=== PATIENT | female | born 1985 | race Caucasian/White ===

== ENCOUNTER 2017-03-23 19:08 | Emergency (ER) | payer MEDICAID ==
[2017-03-23 19:18] VITALS: BP 124/85; PULSE 78; RESP 16; TEMP 98.1; O2SAT 96
[2017-03-23] MEDS ORDERED: TDAP ADULT 0.5 ML INJ (BOOSTRIX) IM ONE (19:54)
--- NOTE | 2017-03-23 19:57 | EDPHY ---
H & P Source: Patient, Family Exam Limitations: No limitations - Medical/Surgical History Hx Asthma: No Hx Chronic Respiratory Disease: No Hx Diabetes: No Hx Cardiac Disease: No Hx Renal Disease: No Hx Cirrhosis: No Hx Alcoholism: No Hx HIV/AIDS: No Hx Splenectomy or Spleen Trauma: No Other PMH: bel removal, depression, Hep C, add - Social History Smoking Status: Former smoker HPI/ROS: CHIEF COMPLAINT: Finger tip laceration HISTORY OF PRESENT ILLNESS: Patient was using scissors to wrap her present this afternoon around 3:30 p.m. when she accidentally cut the distal phalanx on the right middle finger. Moderate bleeding noted. Worse with palpation and movement. Improved at rest. Some tingling and numbness of the area of injury. Now becoming more painful. No difficulty flexing or extending the finger. No injury elsewhere. Uncertain when her last tetanus shot was. No other associated complaints or modifying factors. TIME OF INJURY: 3:30 p.m.. TETANUS STATUS: Uncertain REVIEW OF SYSTEMS: Ten systems reviewed and are negative unless otherwise noted in the HPI EXAMINATION General Appearance: Alert, no distress Cardiovascular: Pulses normal throughout. Symmetric radial pulses. Brisk cap refill Neurological: A&O, sensory symmetric, strength symmetric Skin: Warm and dry, no rash. There is a 0.5 cm in diameter area of tissue avulsion on the distal phalanx of the right middle finger. No repairable laceration. Neurovascular intact distally with brisk cap refill Extremities: Tender over the area of skin avulsion. Full flexion extension including superficial and profundus. Neurovascular intact. Psychiatric: Mood and affect normal MDM: 7:50 p.m. Superficial skin avulsion on the distal phalanx of the right middle finger. Tetanus status is in question, thus we will provide vaccination here. I have applied a digital block for pain control. 7:50 p.m. PROCEDURE: Digital Block Indication:Finger laceration/avulsion Consent: Verbal Location: Right middle finger, distal phalanx Anesthesia: Lidocaine 1% plain, 0.25% Marcaine plain, 5mL Description: The base of the right middle finger was prepped with chlorhexidine. The above was infused with good anesthesia. Tolerated well without complication. Brisk cap refill postprocedure. Complications: None 8:15 p.m. Digital block provided complete anesthesia. Wound has been irrigated copiously. I re-examined the wound. There is some mild bleeding after the irrigation but no foreign body. There is no repairable wound as the tissue was avulsed. It is very superficial. The wound is currently being dressed with bacitracin and Surgicel. Continue daily wound care with bacitracin as discussed. Keep the wound clean, dry and covered. Follow up with primary care physician [facility]. Return here for signs of infection as discussed. She is comfortable with this plan and discharged home stable condition. ED Precautions: Worsening pain. Erythema, edema, cyanosis, pallor, paresthesia or anesthesia. SUPERVISION: This patient was independently evaluated without direct examination by the attending physician. Case was discussed with attending physician. (Jimmie Barker) Constitutional: Initial Vital Signs Temperature (C) 36.7 C 03/23/17 19:16 Heart Rate 78 03/23/17 19:16 Respiratory Rate 16 03/23/17 19:16 Blood Pressure 124/85 H 03/23/17 19:16 O2 Sat (%) 96 03/23/17 19:16 O2 Delivery Mode Room Air Allergies/Adverse Reactions: No Known Allergies Allergy (Verified 03/23/17 19:18) Home Medications: Medication Instructions Recorded Vit/Fe Fumarate/FA 1 each PO DAILY 12/30/11 [ Tablet] FLUOXETINE HCL 08/30/16 traZODone 08/30/16 VYVANSE 03/23/17 Medical Decision Making Other Provider: The patient wasevaluatedand managed by themkylevel provider. My co- signature indicates that [facility] reviewed this chart and I agree with the findings and plan of care asdocumented. I am the secondary supervising physician. (Janine Jones) - Data Points Medications Given: Discontinued Medications Diphtheria/Tetanus/Acell Pertussis (Boostrix) 0.5 ml IM .ONCE ONE Stop: 03/23/17 19:55 Last Admin: 03/23/17 20:17 Dose: 0.5 ml Departure - Departure Disposition: Home, Routine, Self-Care Clinical Impression: Fingertip avulsion Condition: Good Instructions: Skin Avulsion (ED) Additional Instructions: Daily wound care as discussed. Keep the wound covered, clean and dry. Follow up here for any signs of infection as discussed. Contact primary care physician for definitive care otherwise Referrals: Shara Croft MD [[facility] Primary Care Provider] - As per Instructions NONE *PRIMARY CARE P,. [Primary Care Provider] - As per Instructions Leandra Meek MD [Medical Doctor] - As per Instructions Hammad Montanez MD [Medical Doctor] - As per Instructions
== END 2017-03-23 20:14 | disposition home or self-care (01) ==
PROC: 3E0234Z Introduction of Serum, Toxoid and Vaccine into Muscle, Percutaneous Approach (ICD-10-PCS; principal; 2017-03-23)
PROC: 3E0T3BZ Introduction of Anesthetic Agent into Peripheral Nerves and Plexi, Percutaneous Approach (ICD-10-PCS; principal; 2017-03-23)
DX: S61.202A Unspecified open wound of right middle finger without damage to nail, initial encounter (principal); Z23 Encounter for immunization; Z87.891 Personal history of nicotine dependence; W27.2XXA Contact with scissors, initial encounter

== ENCOUNTER 2018-07-20 21:57 | Emergency (ER) | payer MEDICAID ==
--- NOTE | 2018-07-20 22:21 | EDPHY ---
H & P Stated Complaint: ?SPIDER BITES, THUMB, LEGS Time Seen by Provider: 07/20/18 22:21 HPI/ROS: HPI CHIEF COMPLAINT: Multiple areas of redness. HISTORY OF PRESENT ILLNESS: 33-year-old female, she states she is otherwise healthy, however has a history of hepatitis-C, denies IV drug use, presents emergency room with 3 discrete erythematous lesions that are concerning for soft tissue infection. She has 1 on the left lateral thigh, 1 on the right gluteus, and 1 over the dorsum of the right thumb. She states this all or updated over the past week. The 1 on her thumb is new in the past day. She decided come the emergency room as the thumb lesion is erythematous, and looked infected to her. Past Medical History: Hepatitis-C. Past Surgical History: No recent surgery Social History: Smokes marijuana daily. Did have whiskey this evening. Denies IV drug use Family History: Noncontributory ROS REVIEW OF SYSTEMS: 10 Systems were reviewed and negative with the exception of the elements mentioned in the history of present illness. Exam Constitutional triage nursing summary reviewed, vital signs reviewed, awake/ alert. Eyes normal conjunctivae and sclera, EOMI, PERRLA. HENT normal inspection, atraumatic, moist mucus membranes, no epistaxis, neck supple/ no meningismus, no raccoon eyes. Respiratory clear to auscultation bilaterally, normal breath sounds, no respiratory distress, no wheezing. Cardiovascular rate normal, regular rhythm, no murmur, no edema, distal pulses normal. Gastrointestinal soft, non-tender, no rebound, no guarding, normal bowel sounds, no distension, no pulsatile mass. Genitourinary no CVA tenderness. Musculoskeletal no midline vertebral tenderness, full range of motion, no calf swelling, no tenderness of extremities, no meningismus, good pulses, neurovascularly intact. Skin 3 discrete lesions specifically a quarter-size lesion on the left eye, additionally quarter-size lesion on the right gluteus, and a dime-sized lesion over the dorsum of the right thumb. Erythema with a small amount of streaking up her thumb. The thumb is neurovascular intact. No evidence of tenosynovitis at this time. No sausage digit. It is not significantly swollen. She has full range of motion. Good cap refill. Sensation intact. No crepitus. However the dorsum of this is a very small area of erythema. Warmth. Neurologic awake, alert and oriented x 3, AAOx3, moves all 4 extremities equally, motor intact, sensory intact, CN II-XII intact, normal cerebellar, normal vision, normal speech. Psychiatric normal mood/affect. Heme/Lymph/Immune no lymphadenopathy. Differential Diagnosis: Includes but is not limited to in a particular order cellulitis, strep infection, MRSA infection Medical Decision Making: Plan for this patient IM Ancef. Additionally oral Keflex. Additionally oral Bactrim. Recommend warm compresses. Warm compresses for 20 min 3 times a day. Return precautions discussed with the patient return emergency room if there is worsening redness, pain, swelling, streaking. Source: Patient - Personal History LMP (Females 10-55): 1-7 Days Ago Current Tetanus/Diphtheria Vaccine: Unsure - Medical/Surgical History Hx Asthma: No Hx Chronic Respiratory Disease: No Hx Diabetes: No Hx Cardiac Disease: No Hx Renal Disease: No Hx Cirrhosis: No Hx Alcoholism: No Hx HIV/AIDS: No Hx Splenectomy or Spleen Trauma: No Other PMH: bel removal, depression, Hep C, add - Social History Smoking Status: Current some day smoker Constitutional: Initial Vital Signs Temperature (C) 36.7 C 07/20/18 21:59 Heart Rate 80 07/20/18 21:59 Respiratory Rate 18 07/20/18 21:59 Blood Pressure 135/99 H 07/20/18 21:59 O2 Sat (%) 96 07/20/18 21:59 O2 Delivery Mode Room Air Allergies/Adverse Reactions: No Known Allergies Allergy (Verified 07/20/18 21:58) Home Medications: Medication Instructions Recorded Vit/Fe Fumarate/FA 1 each PO DAILY 12/30/11 [ Tablet] traZODone 08/30/16 VYVANSE 03/23/17 Cephalexin [Keflex] 500 mg PO Q6H #28 cap 07/20/18 Effexor Xr 07/20/18 Sulfamethox/Tmp 800/160 mg 1 tab PO BID #14 tab 07/20/18 [Bactrim Ds] Departure - Departure Disposition: Home, Routine, Self-Care Clinical Impression: Cellulitis Qualifiers: Site of cellulitis: unspecified site Qualified Code(s): L03.90 - Cellulitis, unspecified Condition: Good Instructions: Cellulitis (ED) Additional Instructions: 1. Warm compresses 3 times a day for 20 min. 2. Antibiotics as prescribed 3. Return if worsening symptoms including worsening redness, pain, swelling, warmth. Referrals: CARLA GOLDMAN [Other] - As per Instructions Prescriptions: Cephalexin [Keflex] 500 mg PO Q6H #28 cap Sulfamethox/Tmp 800/160 mg [Bactrim Ds] 1 tab PO BID #14 tab
[2018-07-20] MEDS ORDERED: SULFAMETHOX/TMP 800/160 MG 1 TAB PO ONE (22:26)
[2018-07-20] MEDS ORDERED: CEPHALEXIN 500MG PREPACK#4 BTL TAKEHOME ONE (22:26)
[2018-07-20] MEDS ORDERED: CEPHALEXIN 500 MG CAP PO ONE (22:26)
[2018-07-20] MEDS ORDERED: CEFAZOLIN 330 MG/ML IM SYRINGE IM ONE (22:26)
[2018-07-20 22:58] VITALS: BP 119/75
== END 2018-07-20 23:14 | disposition home or self-care (01) ==
DX: L03.90 Cellulitis, unspecified (principal)
CPT/HCPCS: J0696

== ENCOUNTER 2018-07-28 15:24 | Inpatient (IN) | payer MEDICAID ==
[2018-07-28] MEDS ORDERED: AZITHROMYCIN 250 MG TAB PO ONE (15:39)
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
[2018-07-28] MEDS ORDERED: ULIPRISTAL ACETATE 30 MG TAB PO ONE (16:01)
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
--- NOTE | 2018-07-28 22:16 | ASMTTCLDSP ---
[facility] Discharge Disposition Disposition: Answers: Admit Disposition Notes: Notes: Admit to 3N Discharge Concerns/Recommendations: Notes: In consultation with [facility] MD, Afsaneh Sawant and on-call psychiatrist, Bernabe Munoz MD, both concurred that pt appears to meet 27-65 criteria requiring psychiatric hospitalization as pt appears to be at risk of harm to self due to a mental illness condition. Pt was given the 3N prohibited belongings list while in the ED. [facility] made report to [facility], [place] [phone] for welfare check of pt's 7 year old daugther. Was patient given the Answers: Yes Inpatient Behavioral Health Prohibited Belongings List while in the ED? For inpatient Dr. Bernabe Munoz admission, the following psychiatrist agreed to accept patient for admission to Behavioral Health ([facility]): Type of Hold: Answers: M1/72-hour Hold Hold initiated by: Answers: ED Physician Date Signed: 07/28/2018 10:15 PM Electronically Signed By:Maame Manuel
[2018-07-29] MEDS ORDERED: ACETAMINOPHEN 325 MG TAB PO PRN (00:11)
[2018-07-29] MEDS ORDERED: MAG HYDROX/AL HYDROX/SIMETH 30 ML UDCUP PO PRN (00:11)
[2018-07-29] MEDS ORDERED: MAGNESIUM HYDROXIDE 30 ML UDCUP PO PRN (00:11)
[2018-07-29] MEDS ORDERED: OLANZapine DISINTEGR 5 MG TAB PO PRN (00:11)
[2018-07-29] MEDS ORDERED: LORazepam 0.5 MG TAB PO PRN (00:11)
[2018-07-29] MEDS ORDERED: NICOTINE POLACRILEX 2 MG GUM B PRN (00:11)
[2018-07-29] MEDS ORDERED: MELATONIN 3 MG TAB PO PRN (00:24)
[2018-07-29] MEDS ORDERED: CEPHALEXIN 500 MG CAP PO SCH ×2 (09:00)
[2018-07-29] MEDS: PRENATAL VIT 1 EACH TAB PO SCH (13:59)
[2018-07-29] MEDS ORDERED: IBUPROFEN 600 MG TAB PO ONE (14:04)
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
[2018-07-29] MEDS: IBUPROFEN 600 MG TAB PO PRN (14:15)
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
--- NOTE | 2018-07-30 13:11 | ASMTCMCOM ---
CM Note CM Note Notes: CC contacted [facility] about pt's daughter. CC spoke with Enedina Leija who took the report. Date Signed: 07/30/2018 01:10 PM Electronically Signed By:Luna Dickinson
[2018-07-30] MEDS: PRENATAL VIT 1 EACH TAB PO SCH (16:34)
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
[2018-07-31] MEDS: PRENATAL VIT 1 EACH TAB PO SCH (14:07)
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
[2018-08-01] MEDS: PRENATAL VIT 1 EACH TAB PO SCH (13:01)
--- NOTE | 2018-08-01 15:23 | ASMTBHDC ---
Notes Note: Notes: Pt. was resting in bed when CC approached. Pt. reported feeling "little better today". Pt. reports eating breakfast and calling her boyfriend this morning. Pt. stated she didn't sleep as well as previous nights. Pt. stated she is not attending groups due to sleeping. Pt. stated she has not called the preparer back, CC encouraged pt to do so. Pt. stated the medications she was taking before overdosing, were helpful and she is willing to restart them. Pt. stated her ideal discharge plan would have a follow up appointment. Pt. later stated she has an appointment with her psychiatrist on 08/05/18 but is unsure of the time. Pt. denied SI, HI, AVH and paranoia. Pt. presents as waking up, calm, passive at times, cooperative and with good eye contact. Staff report pt. sleeping 12 hours. CC spoke with pt's boyfriend James (BOC). BOC stated pt. sleeps a lot and will sleep all day, adding it is a part of her depression. BOC stated "we need her home and awake". BOC stated here is an [facility] appointment Thursday08/02/18 at 8:30am to help pt and him with housing. CC explained pt. will not be able to attend this meeting. Date Signed: 08/01/2018 03:22 PM Electronically Signed By:Luna Dickinson
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
[2018-08-02 06:43] VITALS: BP 115/66
[2018-08-02] MEDS: PRENATAL VIT 1 EACH TAB PO SCH (08:26)
[2018-08-02] MEDS ORDERED: VENLAFAXINE XR 37.5 MG CAP PO SCH (09:00)
[2018-08-02] MEDS ORDERED: FLUoxetine 20 MG CAP PO SCH (09:00)
[2018-08-02] MEDS: IBUPROFEN 600 MG TAB PO PRN (09:34)
== END 2018-08-02 13:18 | disposition home or self-care (01) | DRG 751 ==
LOC: EDUNIT# → EEVIPCON 15:24 → SANE 23:29 → BBEH 23:55
PROVIDERS: ADMIT Psychiatry & Neurology Psychiatry; ATTEND Psychiatry & Neurology Psychiatry
DX: F33.1 Major depressive disorder, recurrent, moderate (principal); F43.10 Post-traumatic stress disorder, unspecified; F15.90 Other stimulant use, unspecified, uncomplicated; B19.20 Unspecified viral hepatitis C without hepatic coma; F17.210 Nicotine dependence, cigarettes, uncomplicated
CPT/HCPCS: 80307; G0480; J0696

== ENCOUNTER 2018-09-18 18:09 | Emergency (ER) | payer MEDICAID ==
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
[2018-09-18] MEDS ORDERED: IBUPROFEN 600 MG TAB PO ONE (20:45)
[2018-09-18 20:56] VITALS: BP 129/86
== END 2018-09-18 21:30 | disposition home or self-care (01) ==
LOC: EDUNIT# → EEVIPCON 18:09
DX: S00.83XA Contusion of other part of head, initial encounter (principal); S10.91XA Abrasion of unspecified part of neck, initial encounter; S40.021A Contusion of right upper arm, initial encounter; M53.3 Sacrococcygeal disorders, not elsewhere classified; Z59.0 Homelessness; Y04.8XXA Assault by other bodily force, initial encounter; Y92.89 Other specified places as the place of occurrence of the external cause; Y93.9 Activity, unspecified; Y99.9 Unspecified external cause status